=== PATIENT | female | born 1985 | race Two or more races ===

== ENCOUNTER 2020-11-09 14:43 | Emergency (ER) | payer BC ==
[~2020-11-09 14:43] MED LIST: Iopamidol 755 Mg/ML 100 ML Bottle IVPUSH ONE
[2020-11-09] MEDS ORDERED: GI Cocktail Oral Solution 30 ML PO ONE (15:17)
[2020-11-09 15:22] LABS: CHLORIDE,CL 101 mmol/L (98-107); SODIUM,NA 139 mmol/L (136-145)
--- NOTE | 2020-11-09 15:44 | EDM.PDOC ---
ED [facility] GENERAL MEDICAL PROBLEM - General Chief Complaint: Chest Pain Stated Complaint: chest pain Time Seen by Provider: 11/09/20 14:53 Source of Information: Reports: Patient History Limitations: Reports: No Limitations - History of Present Illness INITIAL COMMENTS - FREE TEXT/NARRATIVE: Patient comes to ER with complaint of substernal chest discomfort. Present for three days. Initially was on/off. Better laying down. Worse sitting up. No change with Pepto/Tums. No change with eating/drinking. History of GERD. History of recent back injury. Back injury improved but still some discomfort upper back. No change in pain with deep breathing or when lifting arms overhead. No other acute change. No history of similar pain in past. No family history of early AK or early CAD. Is smoker. No chance of . - Related Data Allergies Allergy/AdvReac Type Severity Reaction Status Date / Time No Known Allergies Allergy Verified 11/09/20 16:03 Home Meds: Home Meds . [No Known Home Meds] 07/06/16 [History] Past Medical History Endocrine/Metabolic History: Reports: Obesity/BMI 30+ - Past Surgical History Musculoskeletal Surgical History: Reports: Arthroscopic Knee Social & Family History - Tobacco Use Tobacco Use Status *Q: Current Every Day Tobacco User - Caffeine Use Caffeine Use: Reports: Coffee, Tea ED ROS GENERAL - Review of Systems Review Of Systems: Comprehensive ROS is negative, except as noted in HPI. ED EXAM, GENERAL - Physical Exam Exam: See Below Exam Limited By: No Limitations General Appearance: Alert, No Apparent Distress, Obese Eye Exam: Bilateral Eye: EOMI, PERRL Ears: Normal External Exam, Hearing Grossly Normal Nose: No: Nasal Deformity, Nasal Swelling, Nasal Drainage Throat/Mouth: Normal Lips, Normal Voice, No Airway Compromise Head: Atraumatic, Normocephalic Neck: Supple, Non-Tender, Full Range of Motion Respiratory/Chest: No Respiratory Distress, Lungs Clear, Normal Breath Sounds, No Accessory Muscle Use, Chest Non-Tender Cardiovascular: Regular Rate, Rhythm, No Edema, No Murmur GI/Abdominal: Normal Bowel Sounds, Soft, No Organomegaly, No Distention, Other (discomfort with palpation in epigastric area). No: Guarding, Rigid, Rebound Back Exam: Normal Inspection. No: CVA Tenderness (L), CVA Tenderness (R), Muscle Spasm, Paraspinal Tenderness, Vertebral Tenderness Extremities: Normal Inspection, Normal Range of Motion, Non-Tender, No Pedal Edema, Normal Capillary Refill Neurological: Alert, Oriented, Normal Cognition, Normal Gait, No Motor/Sensory Deficits Psychiatric: Normal Affect, Normal Mood Skin Exam: Warm, Dry, Intact, Normal Color #1 Interpretation EKG Date: 11/09/20 Time: 15:56 Rhythm: NSR Rate (Beats/Min): 76 [place]: Normal P-Wave: Present QRS: Normal ST-T: Normal QT: Normal Course - Vital Signs Last Recorded V/S: Last Vital Signs Temp 37.3 C 11/09/20 14:50 Pulse 80 11/09/20 17:36 Resp 16 11/09/20 17:36 BP 128/83 11/09/20 17:36 Pulse Ox 98 11/09/20 17:36 - Orders/Labs/Meds Orders: Active Orders 24 hr Category Date Time Status Chest 2V [CR] Stat Exams 11/09/20 14:56 Taken PE Chest [Ang Chest] [CT] Stat Exams 11/09/20 16:39 Taken EKG 12 Lead [EK] Routine Ther 11/09/20 15:17 Ordered Labs: Laboratory Tests 11/09/20 11/09/20 11/09/20 Range/Units 15:00 15:00 15:00 WBC 8.4 (4.0-10.2) K/uL RBC 4.85 (3.77-5.09) M/uL Hgb 14.2 (11.7-15.5) g/dL Hct 42.8 (34.0-46.0) % MCV 88.2 (84.0-98.0) fL MCH 29.3 (28.2-33.3) pg MCHC 33.2 (31.7-36.0) g/dL RDW 13.3 (11.2-14.1) % Plt Count 367 H (150-350) K/uL Neut % (Auto) 56.5 (45.0-80.0) % Lymph % (Auto) 34.6 (10.0-50.0) % [place] % (Auto) 7.3 (2.0-14.0) % Eos % (Auto) 1.5 (0.0-5.0) % Baso % (Auto) 0.1 (0.0-2.0) % Neut # (Auto) 4.74 (1.40-7.00) K/uL Lymph # (Auto) 2.90 (0.50-3.50) K/uL [place] # (Auto) 0.61 (0.00-1.00) K/uL Eos # (Auto) 0.13 (0.00-0.50) K/uL Baso # (Auto) 0.01 (0.00-0.20) K/uL D-Dimer, Quantitative (0-400) ng/mL Sodium 139 (136-145) mmol/L Potassium 4.7 (3.5-5.1) mmol/L Chloride 101 (98-107) mmol/L Carbon Dioxide 25.5 (21.0-32.0) mmol/L BUN 11 (7-18) mg/dL Creatinine 0.63 (0.51-1.17) mg/dL Est Cr Clr Drug Dosing TNP Estimated GFR (MDRD) > 60 mL/min Glucose 93 (70-99) mg/dL Lactic Acid 0.9 (0.4-2.0) mmol/L Calcium 9.6 (8.5-10.1) mg/dL Magnesium 1.9 (1.8-2.4) mg/dL Total Bilirubin 0.3 (0.2-1.0) mg/dL AST 35 (15-37) U/L ALT 61 (12-78) U/L Alkaline Phosphatase 68 (46-116) IU/L Troponin I 0.000 (0.000-0.056) ng/mL Total Protein 7.8 (6.4-8.2) g/dL Albumin 3.8 (3.4-5.0) g/dL Amylase (25-115) U/L Lipase (73-393) U/L Specimen Type Urine Color Urine Appearance Urine pH (5.0-9.0) Ur Specific [place] (1.005-1.030) Urine Protein (NEGATIVE) mg/dL Urine Glucose (UA) (NEGATIVE) mg/dL Urine Ketones (NEGATIVE) mg/dL Urine Occult Blood (NEGATIVE) Urine Nitrite (NEGATIVE) Urine Bilirubin (NEGATIVE) Urine Urobilinogen (0.2-1.0) E.U./dL Ur Leukocyte Esterase (NEGATIVE) Urine RBC /HPF Urine WBC /HPF Ur Epithelial Cells /LPF Urine Bacteria (NONE TO FEW) /HPF Urine Mucus (NEGATIVE) /LPF 11/09/20 11/09/20 11/09/20 Range/Units 15:00 15:00 15:25 WBC (4.0-10.2) K/uL RBC (3.77-5.09) M/uL Hgb (11.7-15.5) g/dL Hct (34.0-46.0) % MCV (84.0-98.0) fL MCH (28.2-33.3) pg MCHC (31.7-36.0) g/dL RDW (11.2-14.1) % Plt Count (150-350) K/uL Neut % (Auto) (45.0-80.0) % Lymph % (Auto) (10.0-50.0) % [place] % (Auto) (2.0-14.0) % Eos % (Auto) (0.0-5.0) % Baso % (Auto) (0.0-2.0) % Neut # (Auto) (1.40-7.00) K/uL Lymph # (Auto) (0.50-3.50) K/uL [place] # (Auto) (0.00-1.00) K/uL Eos # (Auto) (0.00-0.50) K/uL Baso # (Auto) (0.00-0.20) K/uL D-Dimer, Quantitative 534 H (0-400) ng/mL Sodium (136-145) mmol/L Potassium (3.5-5.1) mmol/L Chloride (98-107) mmol/L Carbon Dioxide (21.0-32.0) mmol/L BUN (7-18) mg/dL Creatinine (0.51-1.17) mg/dL Est Cr Clr Drug Dosing Estimated GFR (MDRD) mL/min Glucose (70-99) mg/dL Lactic Acid (0.4-2.0) mmol/L Calcium (8.5-10.1) mg/dL Magnesium (1.8-2.4) mg/dL Total Bilirubin (0.2-1.0) mg/dL AST (15-37) U/L ALT (12-78) U/L Alkaline Phosphatase (46-116) IU/L Troponin I (0.000-0.056) ng/mL Total Protein (6.4-8.2) g/dL Albumin (3.4-5.0) g/dL Amylase 36 (25-115) U/L Lipase 72 L (73-393) U/L Specimen Type Urinvoid Urine Color Light yellow Urine Appearance Slightly cloudy Urine pH 7.0 (5.0-9.0) Ur Specific [place] 1.015 (1.005-1.030) Urine Protein Negative (NEGATIVE) mg/dL Urine Glucose (UA) Negative (NEGATIVE) mg/dL Urine Ketones Negative (NEGATIVE) mg/dL Urine Occult Blood Negative (NEGATIVE) Urine Nitrite Negative (NEGATIVE) Urine Bilirubin Negative (NEGATIVE) Urine Urobilinogen 0.2 (0.2-1.0) E.U./dL Ur Leukocyte Esterase Negative (NEGATIVE) Urine RBC Not seen /HPF Urine WBC 0-5 /HPF Ur Epithelial Cells Few /LPF Urine Bacteria Few (NONE TO FEW) /HPF Urine Mucus Few H (NEGATIVE) /LPF Meds: Medications Discontinued Medications Generic Name Dose Route Start Last Admin Trade Name Fedeq PRN Reason Stop Dose Admin Al Hydroxide/Mg Hydroxide 30 ml 11/09/20 15:17 11/09/20 16:10 Gi Cocktail Oral Solution 30 Ml PO 11/09/20 15:18 30 ml ONETIME ONE Administration Iopamidol 100 ml 11/09/20 13:00 11/09/20 17:25 Iopamidol 755 Mg/Ml 100 Ml Bottle IVPUSH 11/09/20 13:01 100 ml ONETIME ONE Administration Iopamidol Confirm 11/09/20 17:06 Iopamidol 755 Mg/Ml 100 Ml Bottle Administered 11/09/20 17:07 Dose 100 ml .ROUTE .STK-MED ONE Pantoprazole Sodium 40 mg 11/09/20 17:07 11/09/20 17:34 Pantoprazole 40 Mg Vial IVPUSH 11/09/20 17:08 40 mg ONETIME ONE Administration - Re-Assessments/Exams Free Text/Narrative Re-Assessment/Exam: 11/09/20 15:48 Chest xray, EKG, CBC/Chem/Mg/UA/Trop negative. Free Text/Narrative Re-Assessment/Exam: 11/09/20 16:37 Mild improvement with GI cocktail but pain still present. DDimer mildly +. Discussed pros/cons of CT angio and potential risk of PE being present and causing pain. Normal oxygen saturation and RR. Pt elected to undergo CT PE study but wants to go home after study performed. Is willing to return to ER for updated treatment plan if + for PE. 11/09/20 17:46 Feeling further improved at time of discharge. 11/10/20 10:[address] negative for PE or other acute changes. Departure - Departure Time of Disposition: 17:05 Disposition: Home, Self-Care 01 Condition: Good Clinical Impression: Atypical chest pain - Discharge Information *PRESCRIPTION DRUG MONITORING PROGRAM REVIEWED*: Not Applicable *COPY OF PRESCRIPTION DRUG MONITORING REPORT IN PATIENT DAVION: Not Applicable Instructions: Nonspecific Chest Pain, Adult Referrals: PCP,None [Primary Care Provider] - Forms: ED Department Discharge Additional Instructions: Observe for changes/new symptoms and follow up for recheck if pain does not resolve over weekend or if you get new worsening problems. We will call you if there are any concerns on the CT report and determine any additional immediate treatment options if needed at that time. Eat clean! Avoid dairy/chocolate, and gluten for one week. OK to take Zantac or Prilosec for one week. - My Orders Last 24 Hours: My Active Orders 11/09/20 14:56 Chest 2V [CR] Stat 11/09/20 15:17 EKG 12 Lead [EK] Routine 11/09/20 16:39 PE Chest [Ang Chest] [CT] Stat - Assessment/Plan Last 24 Hours: My Active Orders 11/09/20 14:56 Chest 2V [CR] Stat 11/09/20 15:17 EKG 12 Lead [EK] Routine 11/09/20 16:39 PE Chest [Ang Chest] [CT] Stat
[2020-11-09] MEDS ORDERED: Iopamidol 755 Mg/ML 100 ML Bottle ONE (17:06)
[2020-11-09] MEDS ORDERED: Pantoprazole 40 MG Vial IVPUSH ONE (17:07)
[2020-11-09 17:36] VITALS: BP 128/83; PULSE 80
== END 2020-11-09 18:00 | disposition home or self-care (01) ==
LOC: LL.ED 14:43
DX: R07.89 Other chest pain (principal)
CPT/HCPCS: 36415; 71046; 71275; 80053; 81001; 82150; 83605; 83690; 83735; 84484; 85025; 85379; 93005; 93010; 96374; 99284; 99285-25; A9270-GY; C9113; Q9967

== ENCOUNTER 2024-10-07 14:20 | Emergency (ER) | payer SELFPAY ==
[2024-10-07] MEDS: diphenhydrAMINE 50 MG/ML SDV IVPUSH ONE (15:16)
[2024-10-07] MEDS: Sodium Chloride 0.9% 10 ML Syringe FLUSH PRN (15:17)
[2024-10-07 16:20] VITALS: BP 127/96; PULSE 83
== END 2024-10-07 16:43 | disposition home or self-care (01) ==
LOC: LL.ED 14:20
DX: T78.40XA Allergy, unspecified, initial encounter (principal); E66.9 Obesity, unspecified; Z91.048 Other nonmedicinal substance allergy status; Z79.899 Other long term (current) drug therapy; Z68.38 Body mass index [BMI] 38.0-38.9, adult
CPT/HCPCS: 96374; 99283-25; 99284; J1200